=== PATIENT | female | born 1925 | race Caucasian/White ===

== ENCOUNTER → 2017-02-20 | Outpatient (CLI) | payer OTHER ==
[~2017-02-20] VITALS: Ht 152.4 cm; Wt 70.8 kg
[~2017-02-20] MED LIST: ACIPHEX 20 MG T20 MG; ACIPHEX 20 MG T20 MG PO; ANACIN 400-321 EACH PO; ANTIVERT25 MG PO; APAP500 PO; ASA5UEC PO; ASPIR 8181 MG PO; B12INJ IM; BACLOFEN 10MG T10 MG; BACLOFEN 10MG T10 MG PO; CARVEDILOL3.125 MG PO; CITRACAL + BON1 EACH PO; CITRACAL PLUS1 EACH PO; CITRACAL SOFT1 EACH; CITRICAL; CITRUCEL500 MG PO; COREG3.125 MG PO; CYMBALTA30 MG PO; HYDROCODONE-APA1 TA1 PO; LEVOXYL50 MCG PO; LEVOXYL75 MCG PO; LIORESAL 10 MG10 MG PO; LIPITOR 20 MG T20 M1 PO; MECLIZINE 25 MG25 M1 PO; MECLIZINE HCL12.5 MG PO; MOBIC7.5 MG PO; NORCO 5-325 TA1 EACH PO; NORVASC2.5 MG PO; NORVASC5 MG PO; OMEPRAZOLE 20 M20 M1 PO; ONDANSETRON HCL4 M2 PO; PAROXETINE HCL20 MG PO; PAXIL30 MG PO; PINDOLOL PO; PINDOLOL10 MG PO; PINDOLOL5 MG PO; PLAVIX 75 MG TA75 M1 PO; PRAVACHOL20 MG PO; RECLAST 55 MG/1002; RECLAST 55 MG/1002 IV; REQUIP 0.25 M0.25 MG PO; SYNTHROID75 MCG PO; TRAMADOL 50 MG50 MG PO; ULTRACET TABLE1 EACH PO; ULTRACET TABLET1 TAB PO; VERTICALM25 MG PO; VITAMIN B-1100 M1 PO; VITAMIN B-122500 MCG SUBLING; VITAMIN B-12500 MCG PO; VITAMIN D-32000 UNIT PO; VITAMIN D1000 UNI1 PO; VITAMIN D2000 UNIT PO; VITAMIN D400 UNI1 PO; VOLTAREN GEL 1100 G1 TOP; VOLTAREN GEL 1100 G2; VOLTAREN GEL 1100 G2 TOP; ZESTRIL5 MG PO; ZOFRAN ODT4 MG PO; [UNRECOGNIZED DRUG - OTHER]
--- NOTE | ~2017-02-20 | HPC ---
[facility] [place] [address] PAIN MANAGEMENT CONSULTATION Name: KEVIN WHIPPLE Room #: [facility] Albertina#: [id number] Admission: 02/20/17 Attend Phys: Emory Carrera DO Discharge: Date of : [birth year] Report #: [id number] THIS REPORT FOR: //name// CC: Aparna Carrera The patient is a very pleasant 89-year-old female well known to the pain clinic, being treated for lumbar radiculopathy status post decompressive laminectomy, chronic complex medication management, she has an intrathecal pump typically delivering 2.99 mg of morphine a day. She returns to the pain clinic today for scheduled intrathecal pump refill. We had discussed at last visit, increasing the pump for 15-20 mg per mL. This was accomplished today. She notes the pain pump is generally helpful. She has her 89th birthday coming up in May. She has generally been doing quite well, although she was at [facility] approximately 1-2 weeks ago for what sounds like a GI enterovirus. This has resolved nicely. Intrathecal pump refill. PROCEDURE: After written informed consent was obtained, the patient was placed in supine position. Skin overlying the pump was cleansed with ChloraPrep. Skin wheal with Xylocaine was raised. Using a ReaMetrix refill kit, the pump was accessed, aspirated residual contents. Refilled with a new injectate, 20 mL of morphine at the higher concentration i.e., 20 mg per mL. Frequent aspiration showed easy return of injectate. Needle was removed. The area was cleansed, and Band-Aids applied. The program was reformulated to show the new higher concentration. There was a 48-hour "bridge." We will continue her at 2.99 mg of morphine a day. New refill date is now June 19. Discharged in good and stable condition. By: [id number] Emory Carrera, /nt
[2017-02-20 10:59] VITALS: BP 154/73
== END ==
LOC: PAIN 06:31 → EDBD 06:31 → PAIN 07:25
DX: M54.16 Radiculopathy, lumbar region (principal); I10 Essential (primary) hypertension